=== PATIENT | male | born 1995 | race African-American/Black ===

== ENCOUNTER 2024-08-05 11:59 | Emergency (ER) | payer OTHER ==
[~2024-08-05] VITALS: Ht 177.8 cm; Wt 68.0 kg
[2024-08-05] MEDS: IV NORMAL SALINE 1000 ML BAG IV ONE (12:20)
[2024-08-05 12:27] LABS: BASOPHILS # (AUTO) 0.2 K/UL (0.0-0.2); BASOPHILS % (AUTO) 1.5 % (0.0-2.0); EOSINOPHILS # (AUTO) 0.2 K/uL (0.0-0.7); EOSINOPHILS % (AUTO) 1.4 % (0.0-7.0); HEMATOCRIT 44.1 % (36.7-47.1); HEMOGLOBIN 13.7 g/dL (12.5-16.3); LYMPHOCYTES # (AUTO) 4.5 K/uL (0.8-4.8); LYMPHOCYTES % (AUTO) 37.1 % (20.5-51.5); MEAN CORPUSCULAR HEMOGLOBIN 28.1 uug (23.8-33.4); MEAN CORPUSCULAR HGB CONC 31 g/dL (32.5-36.3); MEAN CORPUSCULAR VOLUME 90.6 fL (73.0-96.2); MONOCYTES # (AUTO) 1.2 K/uL (0.1-1.30); MONOCYTES % (AUTO) 10.3 % (0.0-11.0); NEUTROPHILS % (AUTO) 49.7 % (38.5-71.5); PLATELET COUNT (AUTO) 336 K/uL (152-348); RED BLOOD CELL COUNT(AUTO) 4.86 MIL/uL (4.06-5.63); WHITE BLOOD COUNT (AUTO) 12.1 K/uL (3.6-10.2)
[2024-08-05] MEDS ORDERED: levETIRAcetam 500 MG/5 ML VIAL IV ONE (12:27)
[2024-08-05] MEDS: levETIRAcetam IV 1,000 MG in IV DEXTROSE 5% 100 ML IV STA (12:33)
[2024-08-05 12:34] LABS: CALCIUM 9.7 mg/dL (8.5-10.1); CREATININE 1.3 mg/dL (0.6-1.3); POTASSIUM 3.5 mmol/L (3.5-5.1)
[2024-08-05 12:38] LABS: DIFFERENTIAL COMMENT 1
[2024-08-05 13:42] VITALS: BP 135/76; O2SAT 98
== END 2024-08-05 13:44 | disposition home or self-care (01) ==
LOC: ER 11:59 → EDBD 11:59 → ER 13:44
DX: G40.909 Epilepsy, unspecified, not intractable, without status epilepticus (principal); Z60.2 Problems related to living alone
CPT/HCPCS: 99285; 96365; 80048; 85025; 36415; 93005; J1953 ×2; A4606; A4663